=== PATIENT | female | born 1955 | race Caucasian/White ===

== ENCOUNTER 2017-06-20 09:01 | Day surgery (SDC) | payer OTHER ==
[~2017-06-20] VITALS: Ht 157.5 cm; Wt 87.2 kg
[~2017-06-20 09:01] MED LIST: ALBU90OI INH; AMLO10 PO; CEFU250T47 PO; DESV50 PO; FLONASE ALLERG9.9 ML NS; Flovent 110 MCG12 GM INH; HYDPAM25 PO; LEVO-T88 MCG PO; Metoprolol Tar100 MG PO; Micro-K10 MEQ; NAPROXEN SODIU500 MG PO; OMEPRAZOLE MAGN20 MG PO; PRAM.5 PO; TRAZ100 PO; Zocor20 MG PO
== END 2017-06-20 11:52 | disposition home or self-care (01) ==
LOC: ORSCSDS 09:01
PROVIDERS: Internal Medicine Gastroenterology
PROC: 0DBL8ZX Excision of Transverse Colon, Via Natural or Artificial Opening Endoscopic, Diagnostic (ICD-10-PCS; principal; 2017-06-20 10:30)
PROC: 0DBN8ZX Excision of Sigmoid Colon, Via Natural or Artificial Opening Endoscopic, Diagnostic (ICD-10-PCS; principal; 2017-06-20 10:30)
DX: Z12.11 Encounter for screening for malignant neoplasm of colon (principal); D12.3 Benign neoplasm of transverse colon; D12.5 Benign neoplasm of sigmoid colon; K64.4 Residual hemorrhoidal skin tags; K64.8 Other hemorrhoids; I10 Essential (primary) hypertension; E78.5 Hyperlipidemia, unspecified; G47.33 Obstructive sleep apnea (adult) (pediatric); K21.9 Gastro-esophageal reflux disease without esophagitis; E03.9 Hypothyroidism, unspecified; J45.909 Unspecified asthma, uncomplicated; F32.9 Major depressive disorder, single episode, unspecified; E66.9 Obesity, unspecified; Z68.36 Body mass index [BMI] 36.0-36.9, adult; Z79.899 Other long term (current) drug therapy
CPT/HCPCS: 88305; J7120

== ENCOUNTER → 2018-06-10 | Outpatient (CLI) | payer OTHER | END | disposition home or self-care (01) | LOC: LAB SHORT 07:58 → PLD 07:58 | DX: L60.2 Onychogryphosis (principal); B35.1 Tinea unguium | CPT/HCPCS: 88305; 88312 ==

== ENCOUNTER → 2019-08-19 | Outpatient (CLI) | payer MEDICARE, OTHER ==
[2019-08-19 10:51] LABS: BASOPHILS ABSOLUTE AUTO 0.05 K/mm3 (0.00-0.23); BASOPHILS PERCENT AUTO 1 % (0-2); EOSINOPHILS ABSOLUTE AUTO 0.15 K/mm3 (0.00-0.68); EOSINOPHILS PERCENT AUTO 2 % (0-6); Hematocrit 46.3 % (33.0-51.0); Hemoglobin 15.8 g/dL (11.5-16.0); IMMATURE GRAN ABSOLUTE AUTO 0.02 K/mm3 (0.00-0.10); IMMATURE GRAN PERCENT AUTO 0 % (0-1); LYMPHOCYTES ABSOLUTE AUTO 2.49 K/mm3 (0.84-5.20); LYMPHOCYTES PERCENT AUTO 32 % (21-46); MONOCYTES ABSOLUTE AUTO 0.83 K/mm3 (0.16-1.47); MONOCYTES PERCENT AUTO 11 % (4-13); Mean Corpuscular HGB 30.8 pg (26.0-34.0); Mean Corpuscular HGB Conc 34.1 g/dL (31.5-36.5); Mean Corpuscular Volume 90 fL (80-100); Mean Platelet Volume 9.7 fL (9.1-12.4); NEUTROPHILS ABSOLUTE AUTO 4.29 K/mm3 (1.96-9.15); NEUTROPHILS PERCENT AUTO 55 % (41-73); Platelet Count 381 K/mm3 (150-400); RDW Coefficient Variation 13.2 % (11.7-14.2); RDW Standard Deviation 43.8 fL (35.1-46.3); Red Blood Cell Count 5.13 M/mm3 (3.80-5.20); White Blood Cell Count 7.83 K/mm3 (4.00-11.30)
[2019-08-19 11:03] LABS: Anion Gap 8 mmol/L (6-16); Blood Urea Nitrogen 16 mg/dL (8-24); Bun/Creatinine Ratio 14.2 (12.0-20.0); CO2, Blood 31 mmol/L (21-32); Calcium, Blood 9.8 mg/dL (8.5-10.1); Chloride, Blood 101 mmol/L (98-108); Creatinine, Blood 1.13 mg/dL (0.40-1.00); Glomerular Filtration Rate 48 (60-); Glucose, Blood 148 mg/dL (70-99); Potassium, Blood 3.2 mmol/L (3.5-5.5); Sodium, Blood 140 mmol/L (136-145)
[2019-08-19 11:07] LABS: Troponin I <0.017 ng/mL (0.000-0.040)
== END | disposition home or self-care (01) ==
PROVIDERS: Family Medicine
DX: R07.9 Chest pain, unspecified (principal)

== ENCOUNTER → 2020-04-27 | Outpatient (CLI) | payer MEDICARE, OTHER ==
[2020-04-27 11:29] LABS: Source, Urine Clean Catch
[2020-04-27 18:52] LABS: Appearance, Urine Cloudy (Clear); Bilirubin, Urine Neg (Neg); Blood, Urine Neg (Neg); Color, Urine Yellow (P-Yellow); Glucose Qualitative, Urine Neg (Neg); Ketones, Urine Neg (Neg); Leukocyte Esterase, Urine 2+ (Neg); Nitrite, Urine Pos (Neg); Protein, Urine Neg (Neg); Urobilinogen, Urine NORM (Normal)
[2020-04-27 19:11] LABS: Bacteria Many /hpf; Red Blood Cells, Urine Not Seen /hpf (0-2); Squamous Epithelial Cells Few /hpf (Few)
== END ==
LOC: LAB SHORT 11:27 → LAB 11:27 → LAB FUT 04-12 18:50
PROVIDERS: Urology
DX: N39.0 Urinary tract infection, site not specified (principal)
CPT/HCPCS: 81001; 87077; 87086; 87186

== ENCOUNTER 2021-02-13 12:18 | Day surgery (SDC) | payer MEDICARE, OTHER ==
[~2021-02-13] VITALS: Ht 157.5 cm; Wt 82.5 kg
[~2021-02-13 12:18] MED LIST changes: +LOSA25 PO
[2021-02-13] MEDS ORDERED: GABA100 PO (13:07)
--- NOTE | 2021-02-13 13:22 | NUR ---
Ambulatory in Day SurgeryPatient states colon prep results clear. History, Chart, Medications and Allergies reviewed before start of procedure.Lungs clear T/O to Auscultation. Patient confirms NPO status and agrees with scheduled surgery. Pre-Op teaching done. Pt verbalizes understanding. Patient States Post-Procedure ride home has been arranged.
--- NOTE | 2021-02-13 13:54 | NUR ---
02/13/21 1354 MANOJ ESTEBAN History, Chart, Medications and Allergies reviewed before start of procedure. O2 VIA N/C INTACT THROUGHOUT SEDATION/PROCEDURE. MONITOR INTACT WITH CONTINUOUS PULSE OXIMETRY AND INTERMITTENT BP. 3-LEAD EKG REVIEWED WITH PHYSICIAN PRIOR TO START OF PROCEDURE. MAC WITH DR. TAYLOR.
--- NOTE | 2021-02-13 15:21 | NUR ---
Discharge instructions reviewed with patient. Patient verbalizes understanding. Copy given to patient to take home. PT TOLERATED JUICE WELL. DENIES PAIN. Discharged via wheelchair to private car for ride home.
== END 2021-02-13 15:20 | disposition home or self-care (01) ==
LOC: ORSCMMR 12:18 → ORD 14:00 → ORSCSDS 14:00 → ORSCMMR 14:00
PROVIDERS: Student in an Organized Health Care Education/Training Program
PROC: 0DBK8ZX Excision of Ascending Colon, Via Natural or Artificial Opening Endoscopic, Diagnostic (ICD-10-PCS; principal; 2021-02-13 14:00)
PROC: 0DBN8ZX Excision of Sigmoid Colon, Via Natural or Artificial Opening Endoscopic, Diagnostic (ICD-10-PCS; principal; 2021-02-13 14:00)
PROC: 0DBM8ZX Excision of Descending Colon, Via Natural or Artificial Opening Endoscopic, Diagnostic (ICD-10-PCS; principal; 2021-02-13 14:00)
DX: Z12.11 Encounter for screening for malignant neoplasm of colon (principal); Z86.010 Personal history of colon polyps; Z80.0 Family history of malignant neoplasm of digestive organs; D12.2 Benign neoplasm of ascending colon; D12.4 Benign neoplasm of descending colon; D12.5 Benign neoplasm of sigmoid colon; K64.8 Other hemorrhoids; K64.4 Residual hemorrhoidal skin tags; I10 Essential (primary) hypertension; G47.33 Obstructive sleep apnea (adult) (pediatric); E11.9 Type 2 diabetes mellitus without complications; J45.909 Unspecified asthma, uncomplicated; Z79.899 Other long term (current) drug therapy; E66.9 Obesity, unspecified; Z68.33 Body mass index [BMI] 33.0-33.9, adult
CPT/HCPCS: 82947; 88305; J2405; J2704; J7120

== ENCOUNTER → 2021-04-10 | Outpatient (CLI) | payer MEDICARE, OTHER ==
[~2021-04-10] MED LIST changes: +CETI5; +Estrace Vagin42.5 GM; +GABA100 PO; +MELO7.5 PO; -Micro-K10 MEQ; +Micro-K10 MEQ PO; +ROPI.25 PO; +[UNRECOGNIZED DRUG - OTHER] PO
== END | disposition home or self-care (01) ==
LOC: LAB SHORT 15:30
DX: E11.22 Type 2 diabetes mellitus with diabetic chronic kidney disease (principal); I12.9 Hypertensive chronic kidney disease with stage 1 through stage 4 chronic kidney disease, or unspecified chronic kidney disease; N18.9 Chronic kidney disease, unspecified; E87.6 Hypokalemia
CPT/HCPCS: 87077; 87086; 87186

== ENCOUNTER 2021-04-16 06:01 | Day surgery (SDC) | payer MEDICARE, OTHER ==
[~2021-04-16] VITALS: Ht 154.9 cm; Wt 82.8 kg
--- NOTE | 2021-04-16 06:36 | NUR ---
PT ADMITTED TO [facility]. AGREES WITH PLANNED SURGERY. LUNG SOUNDS CLEAR.
--- NOTE | 2021-04-16 09:11 | NUR ---
PLACED ONTO 2LNC AFTER SECOND DOSE OF FENTANYL DUE TO INTERMITTENT DECREASED SPO2. REPORTS PAIN 06/14. REPORT TO GIL DRUMMOND TO ASSUME CARE.
--- NOTE | 2021-04-16 09:51 | NUR ---
ACCEPTED PATIENT IN TO STEP VSS. PATIENT GIVEN JUICE DAUGHTER BROUGHT TO BEDSIDE. PATIENT WITH RN AROUND 30 MINUTES TWO SETS OF VSS. Discharge instructions reviewed with patient. Patient verbalizes understanding. Copy given to patient to take home. Patient States Post-Procedure ride home has been arranged. Discharged via wheelchair to private car for ride home.
== END 2021-04-16 22:56 | disposition home or self-care (01) ==
LOC: ORSCMMR 06:01 → ORD 07:30 → ORSCMMR 22:56
PROVIDERS: Surgery
PROC: 0DBQ7ZX Excision of Anus, Via Natural or Artificial Opening, Diagnostic (ICD-10-PCS; principal; 2021-04-16 07:30)
DX: K62.9 Disease of anus and rectum, unspecified (principal); A63.0 Anogenital (venereal) warts; J44.9 Chronic obstructive pulmonary disease, unspecified; E11.9 Type 2 diabetes mellitus without complications; F41.8 Other specified anxiety disorders; I10 Essential (primary) hypertension; G40.909 Epilepsy, unspecified, not intractable, without status epilepticus; N18.9 Chronic kidney disease, unspecified; Z79.899 Other long term (current) drug therapy; E66.9 Obesity, unspecified; Z68.34 Body mass index [BMI] 34.0-34.9, adult
CPT/HCPCS: 82947; 88305; J1100; J2250; J2370; J2405; J2704; J2765; J3010; J7120

== ENCOUNTER 2021-09-10 10:06 | Day surgery (SDC) | payer MEDICARE, OTHER ==
[~2021-09-10] VITALS: Ht 157.5 cm; Wt 77.1 kg
--- NOTE | 2021-09-10 12:29 | NUR ---
09/10/21 1229 ALEK KIMBROUGH 25MCG FENTANYL GIVEN IV PUSH - PAIN 4/10 FINGERS. ALSO C/O PAIN /RESTLESS LEGS
--- NOTE | 2021-09-10 12:58 | NUR ---
09/10/21 1258 ALEK KIMBROUGH TRIAL OFF O2. NOW 98% ON RA
== END 2021-09-10 13:40 | disposition home or self-care (01) ==
LOC: ORSCSDS 10:06
PROVIDERS: Orthopaedic Surgery
PROC: 0JNK0ZZ Release Left Hand Subcutaneous Tissue and Fascia, Open Approach (ICD-10-PCS; principal; 2021-09-10 11:45)
PROC: 0LN80ZZ Release Left Hand Tendon, Open Approach (ICD-10-PCS; principal; 2021-09-10 11:45)
DX: M72.0 Palmar fascial fibromatosis [Dupuytren] (principal); E11.9 Type 2 diabetes mellitus without complications; I10 Essential (primary) hypertension; J45.909 Unspecified asthma, uncomplicated; Z79.84 Long term (current) use of oral hypoglycemic drugs; Z79.899 Other long term (current) drug therapy; E03.9 Hypothyroidism, unspecified; G47.33 Obstructive sleep apnea (adult) (pediatric)
CPT/HCPCS: 82947; 88304; J0690; J2405; J2704; J2765; J3010; J7120

== ENCOUNTER → 2021-11-01 | Outpatient (CLI) | payer MEDICARE, OTHER | END | disposition home or self-care (01) | LOC: LAB 12:55 → LAB SHORT 12:55 | DX: N39.0 Urinary tract infection, site not specified (principal) | CPT/HCPCS: 87077; 87086; 87186 ==

== ENCOUNTER → 2022-12-02 | Outpatient (CLI) | payer MEDICARE, OTHER ==
[2022-12-02 13:03] LABS: Albumin, Blood 3.8 g/dL (3.4-5.0); BASOPHILS ABSOLUTE AUTO 0.01 K/mm3 (0.00-0.23); BASOPHILS PERCENT AUTO 0 % (0-2); Bilirubin, Total 0.4 mg/dL (0.1-1.0); Bun/Creatinine Ratio 14.9 (12.0-20.0); Calcium, Blood 9.9 mg/dL (8.5-10.1); Creatinine, Blood 0.8 mg/dL (0.40-1.00); EOSINOPHILS ABSOLUTE AUTO 0.03 K/mm3 (0.00-0.68); EOSINOPHILS PERCENT AUTO 0 % (0-6); Hematocrit 46.1 % (33.0-51.0); Hemoglobin 15.1 g/dL (11.5-16.0); IMMATURE GRAN ABSOLUTE AUTO 0.01 K/mm3 (0.00-0.10); IMMATURE GRAN PERCENT AUTO 0 % (0-1); LYMPHOCYTES ABSOLUTE AUTO 2.17 K/mm3 (0.84-5.20); LYMPHOCYTES PERCENT AUTO 30 % (21-46); MONOCYTES ABSOLUTE AUTO 0.85 K/mm3 (0.16-1.47); MONOCYTES PERCENT AUTO 12 % (4-13); Mean Corpuscular HGB Conc 32.8 g/dL (31.5-36.5); Mean Corpuscular Volume 89 fL (80-100); NEUTROPHILS ABSOLUTE AUTO 4.07 K/mm3 (1.96-9.15); NEUTROPHILS PERCENT AUTO 57 % (41-73); Platelet Count 425 K/mm3 (150-400); RDW Coefficient Variation 13.5 % (11.7-14.2); Total Protein, Blood 7.8 g/dL (6.4-8.2); White Blood Cell Count 7.14 K/mm3 (4.00-11.30)
== END | disposition home or self-care (01) ==
LOC: LAB 11:57 → LAB SHORT 11:57
PROVIDERS: Physician Assistant
DX: R10.13 Epigastric pain (principal)
CPT/HCPCS: 80053; 83690; 85025

== ENCOUNTER → 2023-03-11 | Outpatient (CLI) | payer MEDICARE, OTHER ==
[2023-03-11 16:52] LABS: BASOPHILS ABSOLUTE AUTO 0.03 K/mm3 (0.00-0.23); BASOPHILS PERCENT AUTO 0 % (0-2); EOSINOPHILS ABSOLUTE AUTO 0.14 K/mm3 (0.00-0.68); EOSINOPHILS PERCENT AUTO 1 % (0-6); Hematocrit 39.4 % (33.0-51.0); Hemoglobin 12.6 g/dL (11.5-16.0); IMMATURE GRAN ABSOLUTE AUTO 0.03 K/mm3 (0.00-0.10); IMMATURE GRAN PERCENT AUTO 0 % (0-1); LYMPHOCYTES ABSOLUTE AUTO 2.46 K/mm3 (0.84-5.20); LYMPHOCYTES PERCENT AUTO 25 % (21-46); MONOCYTES ABSOLUTE AUTO 1.03 K/mm3 (0.16-1.47); MONOCYTES PERCENT AUTO 11 % (4-13); Mean Corpuscular HGB 28.9 pg (26.0-34.0); Mean Corpuscular Volume 90 fL (80-100); Mean Platelet Volume 9.5 fL (9.1-12.4); NEUTROPHILS ABSOLUTE AUTO 6.03 K/mm3 (1.96-9.15); NEUTROPHILS PERCENT AUTO 62 % (41-73); Platelet Count 418 K/mm3 (150-400); RDW Coefficient Variation 13.5 % (11.7-14.2); RDW Standard Deviation 44.8 fL (35.1-46.3); Red Blood Cell Count 4.36 M/mm3 (3.80-5.20); White Blood Cell Count 9.72 K/mm3 (4.00-11.30)
[2023-03-11 18:55] LABS: Percent Saturation 22.5 % (15.0-50.0)
[2023-03-11 19:01] LABS: Thyroid Stimulating Hormone 2.81 uIU/mL (0.360-4.800)
== END | disposition home or self-care (01) ==
LOC: LAB 08:40 → LAB SHORT 08:40
PROVIDERS: Physician Assistant
DX: R53.83 Other fatigue (principal); Z86.2 Personal history of diseases of the blood and blood-forming organs and certain disorders involving the immune mechanism
CPT/HCPCS: 36415; 82728; 83540; 83550; 84443; 85025

== ENCOUNTER 2023-10-15 02:30 | Day surgery (SDC) | payer OTHER ==
[~2023-10-15 02:30] MED LIST changes: +Sod Ferric Gluc Complx/Sucrose 125 MG in NS 100 ML IV SCH
[2023-10-15 10:04] VITALS: BP 122/70
[2023-10-15] MEDS ORDERED: VITAMIN D5000 UNIT PO (10:21)
[2023-10-15] MEDS ORDERED: CLOBETASOL 0.0560 G1 TOP (10:22)
[2023-10-15] MEDS ORDERED: ALEVE ARTHRITI100 GM TOP (10:23)
[2023-10-15] MEDS ORDERED: Estrace Vagin42.5 GM VAG (10:24)
[2023-10-15] MEDS ORDERED: NAPR500 PO (10:25)
[2023-10-15] MEDS ORDERED: LIDO700A20 TOP (10:25)
[2023-10-15] MEDS ORDERED: ONDA4ODT MM (10:25)
[2023-10-15] MEDS ORDERED: OXYC5 PO (10:26)
[2023-10-15] MEDS ORDERED: OZEMPIC0.25 MG/02 SC (10:28)
[2023-10-15] MEDS ORDERED: TRIDERM28.4 GM TOP (10:28)
[2023-10-15] MEDS ORDERED: VALA500 PO (10:29)
== END 2023-10-15 11:04 | disposition home or self-care (01) ==
LOC: ATC 02:30
DX: E61.1 Iron deficiency (principal); I10 Essential (primary) hypertension
CPT/HCPCS: 96365; J2916

== ENCOUNTER 2023-10-21 02:54 | Day surgery (SDC) | payer OTHER ==
[~2023-10-21 02:54] MED LIST changes: +ALEVE ARTHRITI100 GM TOP; +CLOBETASOL 0.0560 G1 TOP; +Estrace Vagin42.5 GM VAG; +LIDO700A20 TOP; +NAPR500 PO; +ONDA4ODT MM; +OXYC5 PO; +OZEMPIC0.25 MG/02 SC; +TRIDERM28.4 GM TOP; +VALA500 PO; +VITAMIN D5000 UNIT PO
[2023-10-21 13:55] VITALS: BP 103/81
== END 2023-10-21 14:58 | disposition home or self-care (01) ==
LOC: ATC 02:54
DX: E61.1 Iron deficiency (principal); I10 Essential (primary) hypertension; Z88.5 Allergy status to narcotic agent; Z88.2 Allergy status to sulfonamides; Z88.8 Allergy status to other drugs, medicaments and biological substances; Z79.899 Other long term (current) drug therapy
CPT/HCPCS: 96365; J2916

== ENCOUNTER 2023-10-28 03:29 | Day surgery (SDC) | payer OTHER ==
[2023-10-28 13:50] VITALS: BP 142/57
== END 2023-10-28 15:01 | disposition home or self-care (01) ==
LOC: ATC 03:29
DX: E61.1 Iron deficiency (principal); I10 Essential (primary) hypertension; Z79.899 Other long term (current) drug therapy; Z88.2 Allergy status to sulfonamides; Z88.5 Allergy status to narcotic agent; Z88.8 Allergy status to other drugs, medicaments and biological substances
CPT/HCPCS: 96365; J2916

== ENCOUNTER 2023-11-04 01:42 | Day surgery (SDC) | payer OTHER ==
[2023-11-04 14:04] VITALS: BP 154/64
== END 2023-11-04 14:57 | disposition home or self-care (01) ==
LOC: ATC 01:42
DX: E61.1 Iron deficiency (principal); I10 Essential (primary) hypertension; Z88.2 Allergy status to sulfonamides; Z88.5 Allergy status to narcotic agent; Z88.8 Allergy status to other drugs, medicaments and biological substances; Z79.899 Other long term (current) drug therapy
CPT/HCPCS: 96365; J2916

== ENCOUNTER → 2024-05-10 | Outpatient (CLI) | payer OTHER ==
[~2024-05-10] MED LIST changes: -Sod Ferric Gluc Complx/Sucrose 125 MG in NS 100 ML IV SCH
== END | disposition home or self-care (01) ==
LOC: LAB 13:58 → LAB SHORT 13:58
DX: N39.0 Urinary tract infection, site not specified (principal)
CPT/HCPCS: 87077; 87086; 87186

== ENCOUNTER → 2025-03-15 | Outpatient (CLI) | payer OTHER | LOC: LAB SHORT 16:25 → LAB 16:25 | DX: R30.0 Dysuria (principal) | CPT/HCPCS: 87086 ==

== ENCOUNTER → 2025-03-22 | Outpatient (CLI) | payer OTHER ==
[2025-03-22 12:32] LABS: Creatinine, Urine Random 190.0 mg/dL (27.00-270.00); Microalb/Creat Ratio UR, Rand 7.211 mg/g (0.000-30.000); Microalbumin, Random Urine 13.7 mg/L (0.000-20.000)
== END | disposition home or self-care (01) ==
LOC: LAB 10:53 → LAB SHORT 10:53
PROVIDERS: Family Medicine
DX: E11.22 Type 2 diabetes mellitus with diabetic chronic kidney disease (principal); N18.9 Chronic kidney disease, unspecified; E11.69 Type 2 diabetes mellitus with other specified complication
CPT/HCPCS: 82043; 82570